=== PATIENT | female | born 1950 | race Caucasian/White ===

== ENCOUNTER → 2024-03-28 12:47 | Outpatient (REF) | payer MEDICARE, BC, SELFPAY | LOC: HWRAD 12:47 | PROVIDERS: ATTENDING PHYSICIAN Internal Medicine | DX: E04.1 Nontoxic single thyroid nodule (principal) | CPT/HCPCS: 76536 ==

== ENCOUNTER → 2024-05-01 09:10 | Outpatient (REF) | payer MEDICARE, BC, SELFPAY | LOC: HWRAD 09:10 | PROVIDERS: ATTENDING PHYSICIAN Internal Medicine Rheumatology; FAMILY PHYSICIAN Internal Medicine | DX: M18.0 Bilateral primary osteoarthritis of first carpometacarpal joints (principal); M25.531 Pain in right wrist | CPT/HCPCS: 73110 ==

== ENCOUNTER → 2024-12-20 08:30 | Outpatient (REF) | payer MEDICARE, BC, SELFPAY | LOC: RAD 08:30 | PROVIDERS: ATTENDING PHYSICIAN Obstetrics & Gynecology Gynecology; FAMILY PHYSICIAN Internal Medicine | DX: M85.89 Other specified disorders of bone density and structure, multiple sites (principal) | CPT/HCPCS: 77080 ==

== ENCOUNTER → 2024-12-26 15:14 | Outpatient (REF) | payer MEDICARE, BC, SELFPAY | LOC: RAD 15:14 | PROVIDERS: ATTENDING PHYSICIAN Internal Medicine | DX: E04.1 Nontoxic single thyroid nodule (principal) | CPT/HCPCS: 76536 ==

== ENCOUNTER → 2025-02-07 10:36 | Outpatient (REF) | payer MEDICARE, BC, SELFPAY | LOC: PAVMRI 10:36 | PROVIDERS: ATTENDING PHYSICIAN Specialist; FAMILY PHYSICIAN Internal Medicine | DX: M96.1 Postlaminectomy syndrome, not elsewhere classified (principal) | CPT/HCPCS: 72158; A9575 ==